=== PATIENT | male | born 1995 | race Two or more races ===

== ENCOUNTER → 2018-12-14 | Outpatient (CLI) | payer OTHER ==
[~2018-12-14] MED LIST: METHACHOLINE KIT (J7674) INH ONE
--- NOTE | 2018-12-14 15:50 | PFTRPT ---
Height: 69.00 Inches Weight: 150.00 Lbs BSA: 1.83 Diagnosis: R05 DATE OF PROCEDURE: 12/14/2018 ORDERED BY: ARTIE Morse INTERPRETATION: Study of excellent technical quality. Under protocol, methacholine was administered. Even after a maximal dose of 25 mg or 188.875 CDUs, no provocation dose ever achieved. IMPRESSION: Negative methacholine challenge study. MTDD
--- NOTE | 2018-12-14 15:51 | PFTRPT ---
Height: 69.00 Inches Weight: 150.00 Lbs BSA: 1.83 Diagnosis: R05 DATE OF PROCEDURE: 12/14/2018 ORDERED BY: ARTIE Morse Spirometry: Study of excellent technical quality, but suboptimal effort is suspected. Forced vital capacity reduced. FEV1 in proportion. Obstructive index is, therefore, normal. Flow Volume Loop: Expiratory limb of the flow volume loop suggests suboptimal performance of the required maneuver. Lung Volumes: Total lung capacity normal. Residual volume is in proportion. Diffusing Capacity: Diffusing capacity, although mildly reduced, is appropriate for alveolar volume. Hemoglobin: Hemoglobin acceptable at 15.8. Airway Mechanics: Airway resistance and conductance are normal. IMPRESSION: Suboptimal effort. Mild decline in the absolute diffusing capacity. Please correlate clinically. MTDD
== END ==
LOC: M CARPUL 11:36
PROVIDERS: ATTEND Nurse Practitioner Family
DX: R05 Cough (principal)
CPT/HCPCS: 36415; 85018; 94010; 94070; 94726; 94729; J7674

== ENCOUNTER 2019-02-11 18:21 | Inpatient (IN) | payer OTHER ==
[~2019-02-11] VITALS: Ht 175.3 cm; Wt 70.2 kg
[2019-02-11] MEDS ORDERED: PRAZ2CAP PO (18:36)
[2019-02-11] MEDS ORDERED: HYDR100C PO (18:36)
[2019-02-11 18:53] LABS: HEMATOCRIT 45.6 % (42.0-52.0); HEMOGLOBIN 15.9 g/dl (13.5-17.5); MEAN CORPUSCULAR HEMOGLOBIN 29.6 pg (27.0-33.0); MEAN CORPUSCULAR HGB CONC 34.9 g/dl (32.0-36.5); MEAN CORPUSCULAR VOLUME 84.9 fl (80.0-96.0); PLATELET COUNT, AUTOMATED 206 10^3/uL (150-450); RED BLOOD COUNT 5.37 10^6/uL (4.30-6.10); WHITE BLOOD COUNT 10.6 10^3/uL (4.0-10.0)
[2019-02-11 19:15] LABS: AMPHETAMINES LEVEL URINE NEGATIVE (NEGATIVE); BARBITURATES URINE NEGATIVE (NEGATIVE); BENZODIAZEPINES URINE NEGATIVE (NEGATIVE); CANNABINOIDS URINE NEGATIVE (NEGATIVE); COCAINE METABOLITE URINE NEGATIVE (NEGATIVE); METHADONE URINE NEGATIVE (NEGATIVE); OPIATES URINE NEGATIVE (NEGATIVE); PHENCYCLIDINE URINE NEGATIVE (NEGATIVE)
[2019-02-11 19:22] LABS: ACETAMINOPHEN LEVEL < 2.0 UG/ML (10.0-30.0); ALBUMIN 4.2 GM/DL (3.2-5.2); ALT/SGPT 34 U/L (12-78); BILIRUBIN,DIRECT 0.2 MG/DL (0.0-0.2); BILIRUBIN,TOTAL 0.8 MG/DL (0.2-1.0); BLOOD UREA NITROGEN 16 MG/DL (7-18); CALCIUM LEVEL 8.9 MG/DL (8.5-10.1); CARBON DIOXIDE LEVEL 26 MEQ/L (21-32); CHLORIDE LEVEL 108 MEQ/L (98-107); CREATININE FOR GFR 1.05 MG/DL (0.70-1.30); ETHYL ALCOHOL (ETHANOL) < 0.003 % (0.000-0.010); GLOMERULAR FILTRATION RATE > 60.0 (>60); GLUCOSE, FASTING 87 MG/DL (70-100); POTASSIUM SERUM 3.9 MEQ/L (3.5-5.1); SALICYLATE LEVEL < 1.7 MG/DL (5.0-30.0); SODIUM LEVEL 141 MEQ/L (136-145); THYROID STIMULATING HORMONE 0.672 uIU/ML (0.358-3.740); TOTAL PROTEIN 8.3 GM/DL (6.4-8.2)
[2019-02-11] MEDS ORDERED: ACETAMINOPHEN TAB 650MG DOSE (2X325MG) PO ONE (20:30)
[2019-02-11] MEDS ORDERED: ACETAMINOPHEN TAB 650MG DOSE (2X325MG) PO PRN (21:15)
[2019-02-11] MEDS ORDERED: MAALOX 30 ML SUSP *UDC PO PRN (21:15)
[2019-02-11] MEDS ORDERED: MOM 30ML SUSPENSION UDC PO PRN (21:15)
[2019-02-11] MEDS: PRAZOSIN 1 MG CAP PO SCH (22:45)
[2019-02-12 00:13] VITALS: BP 116/75
[2019-02-12] MEDS: hydrOXYzine 50 MG TAB PO SCH (17:35)
[2019-02-12 18:09] VITALS: BP 124/64
[2019-02-12] MEDS: PRAZOSIN 1 MG CAP PO SCH ×2 (21:00→22:07)
[2019-02-13] MEDS: hydrOXYzine 50 MG TAB PO SCH ×4 (06:00→17:51)
[2019-02-13 06:22] VITALS: BP 132/71
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
[2019-02-13] MEDS ORDERED: hydrOXYzine 50 MG TAB PO PRN (18:15)
[2019-02-13 18:24] VITALS: BP 144/78
[2019-02-13] MEDS: traZODone 50 MG TAB PO PRN (22:45)
[2019-02-13] MEDS: PRAZOSIN 1 MG CAP PO SCH (22:46)
[2019-02-14 06:36] VITALS: BP 111/67
[2019-02-14] MEDS ORDERED: PILL CRUSHER/CUTTER 1 EACH XX PRN (12:15)
[2019-02-14 18:00] VITALS: BP 117/75
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
[2019-02-14] MEDS: DULoxetine 20 MG CAP (CYMBALTA) PO SCH (20:24)
[2019-02-14] MEDS: PRAZOSIN 1 MG CAP PO SCH (20:25)
[2019-02-14] MEDS: traZODone 50 MG TAB PO PRN (21:18)
[2019-02-15 06:34] VITALS: BP 96/55
--- NOTE | 2019-02-15 10:16 | MHIPN ---
DATE: 02/13/2019 "I'm good". He is not suicidal. He says that he slept. MENTAL STATUS EXAMINATION: He is alert and oriented times 3, pleasant and cooperative, verbally spontaneous. Eye contact is good. Mood is "good". Affect restrictive, but appropriate. His mood is not psychotic, suicidal or homicidal. Concentration is fair. Memory intact. Insight and judgment fair. DIAGNOSIS: 1. Other specified depressive disorder. 2. Posttraumatic stress disorder (PTSD) by history. TREATMENT AND PLAN: We will continue to titrate his medications as indicated and to further monitor him for continued elevation and stabilization and continue resolution of suicidal ideation. DARWIN
[2019-02-15 18:00] VITALS: BP 113/63
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
[2019-02-15] MEDS: DULoxetine 20 MG CAP (CYMBALTA) PO SCH (20:44)
[2019-02-15] MEDS: PRAZOSIN 1 MG CAP PO SCH (20:44)
[2019-02-15] MEDS: traZODone 50 MG TAB PO PRN (21:14)
[2019-02-16] MEDS ORDERED: ARIPiprazole 2 MG TAB PO SCH (09:00)
[2019-02-16 18:00] VITALS: BP 122/80
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
[2019-02-16] MEDS: DULoxetine 20 MG CAP (CYMBALTA) PO SCH ×2 (21:00→22:43)
[2019-02-16] MEDS: PRAZOSIN 1 MG CAP PO SCH ×2 (21:00→22:42)
[2019-02-16 22:42] VITALS: BP 118/78
[2019-02-17 07:11] LABS: CHOLESTEROL RISK RATIO 5.351 (<5)
[2019-02-17 07:14] VITALS: BP 94/56
[2019-02-17] MEDS ORDERED: ABIL1TAB11 PO (09:45)
[2019-02-17] MEDS ORDERED: CYMB1CAP4 PO (09:45)
[2019-02-17] MEDS ORDERED: TRAZO50TA PO (09:45)
[2019-02-17] MEDS ORDERED: HYDRO50TAB PO (09:45)
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
== END 2019-02-17 13:55 | disposition home or self-care (01) | DRG 885 ==
LOC: M ED 18:21 → M ED INP 21:10 → M PSY 23:30
PROVIDERS: ADMIT Psychiatry & Neurology Psychiatry; ATTEND Psychiatry & Neurology Psychiatry
DX: F39 Unspecified mood [affective] disorder (principal); F32.3 Major depressive disorder, single episode, severe with psychotic features; R45.851 Suicidal ideations; F43.10 Post-traumatic stress disorder, unspecified

== ENCOUNTER 2019-03-18 11:11 | Emergency (ER) | payer OTHER ==
[~2019-03-18] VITALS: Ht 175.3 cm; Wt 70.2 kg
[~2019-03-18 11:11] MED LIST changes: +ABIL1TAB11 PO; +CYMB1CAP4 PO; +HYDR100C PO; +HYDRO50TAB PO; -METHACHOLINE KIT (J7674) INH ONE; +PRAZ2CAP PO; +TRAZ1TAB10 PO
[2019-03-18] MEDS ORDERED: NS 1,000 ML IV ONE (12:00)
[2019-03-18 12:02] LABS: BASO % 0.5 % (0.0-1.0); EOS # 0.5 10^3/uL (0.0-0.50); EOS % 5.6 % (0.0-3.0); HEMATOCRIT 45.8 % (42.0-52.0); HEMOGLOBIN 15.6 g/dl (13.5-17.5); LYMPH # 3.5 10^3/uL (1.5-6.5); LYMPH % 43.5 % (24.0-44.0); MEAN CORPUSCULAR HEMOGLOBIN 29.8 pg (27.0-33.0); MEAN CORPUSCULAR HGB CONC 34.1 g/dl (32.0-36.5); MEAN CORPUSCULAR VOLUME 87.4 fl (80.0-96.0); MONO # 0.6 10^3/uL (0.0-0.8); NEUTROPHILS # 3.5 10^3/uL (1.8-7.7); PLATELET COUNT, AUTOMATED 191 10^3/uL (150-450); RED BLOOD COUNT 5.24 10^6/uL (4.30-6.10)
[2019-03-18] MEDS: GASTROGRAFIN SOLUTION 30ML PO SCH ×2 (12:35→13:05)
[2019-03-18 12:36] LABS: ALT/SGPT 28 U/L (12-78); BILIRUBIN,DIRECT 0.2 MG/DL (0.0-0.2); BILIRUBIN,TOTAL 0.6 MG/DL (0.2-1.0); BLOOD UREA NITROGEN 14 MG/DL (7-18); CALCIUM LEVEL 8.9 MG/DL (8.5-10.1); CARBON DIOXIDE LEVEL 31 MEQ/L (21-32); CHLORIDE LEVEL 105 MEQ/L (98-107); CREATININE FOR GFR 1.14 MG/DL (0.70-1.30); GLOMERULAR FILTRATION RATE > 60.0 (>60); GLUCOSE, FASTING 97 MG/DL (70-100); LIPASE 188 U/L (73-393); POTASSIUM SERUM 3.9 MEQ/L (3.5-5.1); SODIUM LEVEL 140 MEQ/L (136-145); TOTAL PROTEIN 8.4 GM/DL (6.4-8.2)
[2019-03-18] MEDS ORDERED: ISOVUE-370 76% 100ML VIAL (Q9967) As Ordered ONE (13:03)
--- NOTE | 2019-03-18 13:28 | REP ---
Clinical: hematochezia and abdominal pain. Technique: Axial contrast enhanced images from the lung bases to the pubic symphysis using 100 ml Isovue 370 intravenous contrast material with coronal and sagittal re-formations. Findings: Lung bases are clear. Visualized heart and pericardium normal. Liver includes 2.7 x 1.6 x 2.1 cm hyperenhancing lesion along the lateral aspect of the right anterior lobe possibly representing hemangioma. Spleen, pancreas, gallbladder, bilateral adrenal glands and kidneys are normal. The enteric system is without obstruction or acute inflammatory process. Normal terminal ileum and appendix identified in the right lower quadrant. Pelvis demonstrates normal bladder and age appropriate prostate/seminal vesicles. No pelvic fluid or ascites. No free air. No adenopathy. Abdominal aorta without aneurysm or dissection. Musculoskeletal structures are intact. Impression: 1. 2.7 cm presumed hemangioma within the anterior segment right lobe of the liver may be followed by ultrasound as outpatient. 2. No further acute abdominopelvic pathology appreciated. Electronically Signed by Antonio Li MD 03/18/2019 01:19 P
[2019-03-18] MEDS ORDERED: ONDANSETRON 4MG/2ML VIAL (J2405) IV ONE (13:45)
[2019-03-18] MEDS ORDERED: OMEP40CA2 PO (13:53)
[2019-03-18 15:08] VITALS: BP 126/84
--- NOTE | 2019-03-19 08:40 | ED PDOC ---
Post-Departure Follow-Up ft vega herndon faxed formal report of dr mojica for Marc Strauss MD Mar 19, 2019 08:40
== END 2019-03-18 15:14 | disposition home or self-care (01) ==
LOC: M ED 11:11
DX: D18.03 Hemangioma of intra-abdominal structures (principal); F12.90 Cannabis use, unspecified, uncomplicated; F32.9 Major depressive disorder, single episode, unspecified; F41.9 Anxiety disorder, unspecified; F43.12 Post-traumatic stress disorder, chronic; Z79.899 Other long term (current) drug therapy
CPT/HCPCS: 74177; 80048; 80076; 81001; 83690; 85025; 86850; 86900; 86901; 96361; 96374; 99284; J2405; Q9967

== ENCOUNTER 2019-03-24 10:51 | Emergency (ER) | payer OTHER ==
[~2019-03-24 10:51] MED LIST changes: +OMEP40CA2 PO
[2019-03-24 11:28] LABS: HEMATOCRIT 45.8 % (42.0-52.0); HEMOGLOBIN 15.7 g/dl (13.5-17.5); MEAN CORPUSCULAR HEMOGLOBIN 29.9 pg (27.0-33.0); MEAN CORPUSCULAR HGB CONC 34.3 g/dl (32.0-36.5); MEAN CORPUSCULAR VOLUME 87.2 fl (80.0-96.0); PLATELET COUNT, AUTOMATED 203 10^3/uL (150-450); RED BLOOD COUNT 5.25 10^6/uL (4.30-6.10)
[2019-03-24 11:58] LABS: AMPHETAMINES LEVEL URINE NEGATIVE (NEGATIVE); BARBITURATES URINE NEGATIVE (NEGATIVE); BENZODIAZEPINES URINE NEGATIVE (NEGATIVE); CANNABINOIDS URINE NEGATIVE (NEGATIVE); COCAINE METABOLITE URINE NEGATIVE (NEGATIVE); METHADONE URINE NEGATIVE (NEGATIVE); OPIATES URINE NEGATIVE (NEGATIVE); PHENCYCLIDINE URINE NEGATIVE (NEGATIVE)
[2019-03-24 12:02] LABS: ACETAMINOPHEN LEVEL < 2.0 UG/ML (10.0-30.0); ALBUMIN 4.1 GM/DL (3.2-5.2); ALT/SGPT 28 U/L (12-78); BILIRUBIN,DIRECT 0.1 MG/DL (0.0-0.2); BILIRUBIN,TOTAL 0.6 MG/DL (0.2-1.0); BLOOD UREA NITROGEN 13 MG/DL (7-18); CALCIUM LEVEL 9.2 MG/DL (8.5-10.1); CARBON DIOXIDE LEVEL 28 MEQ/L (21-32); CHLORIDE LEVEL 106 MEQ/L (98-107); CREATININE FOR GFR 1.05 MG/DL (0.70-1.30); ETHYL ALCOHOL (ETHANOL) < 0.003 % (0.000-0.010); GLOMERULAR FILTRATION RATE > 60.0 (>60); GLUCOSE, FASTING 100 MG/DL (70-100); POTASSIUM SERUM 4.2 MEQ/L (3.5-5.1); SALICYLATE LEVEL < 1.7 MG/DL (5.0-30.0); SODIUM LEVEL 142 MEQ/L (136-145); THYROID STIMULATING HORMONE 0.858 uIU/ML (0.358-3.740); TOTAL PROTEIN 8.5 GM/DL (6.4-8.2)
[2019-03-24] MEDS ORDERED: OMEP-221 PO (12:29)
[2019-03-24 23:03] VITALS: BP 122/72
--- NOTE | 2019-03-26 08:17 | ECGEPIP ---
[facility] - ED Test Date: 2019-03-24 Pat Name: LIDA ADLER Department: Room: - Gender: Male Donor Relations Manager: sheri : 1995 Requested By: Marc Bledsoe Order Number: [id number] Reading MD: Shai Francis Measurements Intervals [place] Rate: 82 P: 71 ID: [id number] QRS: 4 QRSD: 91 T: 28 QT: 339 QTc: 396 Interpretive Statements SINUS RHYTHM NONSPECIFIC T-WAVE ABNORMALITY Comparison tracing not on file Electronically Signed on 03-26-2019 8:16:53 EDT by Shai Francis
== END 2019-03-24 23:05 ==
LOC: M ED 10:51
DX: R45.851 Suicidal ideations (principal); R44.3 Hallucinations, unspecified; F43.10 Post-traumatic stress disorder, unspecified; F41.9 Anxiety disorder, unspecified; F32.9 Major depressive disorder, single episode, unspecified; G47.30 Sleep apnea, unspecified; Z87.19 Personal history of other diseases of the digestive system; Z72.0 Tobacco use; Z79.899 Other long term (current) drug therapy
CPT/HCPCS: 80048; 80076; 80307; 84443; 85027; 93005; 99284; G0480

== ENCOUNTER → 2019-05-09 | Outpatient (REF) | payer OTHER ==
[~2019-05-09] MED LIST changes: +OMEP-221 PO
== END ==
LOC: M SFHCLERA 19:30
PROVIDERS: ATTEND Physician Assistant
DX: J02.9 Acute pharyngitis, unspecified (principal)